=== PATIENT | female | born 1975 | race Caucasian/White ===

== ENCOUNTER 2024-07-30 14:56 | Emergency (ER) | payer OTHER, SELFPAY ==
[2024-07-30] VITALS (7 sets, daily range): BP systolic 96–116; BP diastolic 47–86; PULSE 65–83; BMI 31.8
[2024-07-30 15:29] LABS: % Basophils 0.7 % (0-2); % Eosinophils 2.6 % (0-6); % Immature Granulocytes 0.4 % (0-0.5); % Lymphocytes 23.9 % (20.5-51.1); % Monocytes 7.6 % (1.7-9.3); % Neutrophils 64.8 % (42.2-75.2); Absolute Basophils 0.1 10^3/uL (0-0.2); Absolute Eosinophils 0.2 10^3/uL (0-0.7); Absolute Lymphocytes 1.9 10^3/uL (1.2-3.4); Absolute Monocytes 0.6 10^3/uL (0.1-0.6); Absolute Neutrophils 5.3 10^3/uL (1.4-6.5); Hematocrit 40.1 % (37.0-47.0); Hemoglobin 13.5 g/dL (12.0-16.0); Mean Corp Hgb Conc. 33.7 g/dL (33.0-37.0); Mean Corpuscular Hgb 28.9 pg (27.0-31.0); Mean Corpuscular Volume 85.9 fL (81.0-99.0); Mean Platelet Volume 14.8 fL (7.4-10.4); Nucleated Red Blood Cells % 0 %; Platelet Count 114 10^3/uL (130-400); Red Blood Cell Count 4.67 10^6/uL (4.20-5.40); Red Cell Dist. Width 13.9 % (11.5-14.5); White Blood Cell Count 8.1 10^3/uL (4.8-10.8)
[2024-07-30 15:36] LABS: HCG, Serum Qualitative Screen Negative
[2024-07-30 15:42] LABS: ALT (SGPT) 13 U/L (0-35); AST (SGOT) 18 U/L (14-36); Albumin 4.5 g/dl (3.5-5.0); Alkaline Phosphatase 61 U/L (38-126); Blood Urea Nitrogen 9 mg/dl (7-17); Calcium 9.5 mg/dl (8.4-10.2); Carbon Dioxide 24 mmol/L (22-30); Chloride 108 mmol/L (98-107); Glucose 113 mg/dl (70-99); Sodium 138 mmol/L (135-145); Total Bilirubin 0.6 mg/dl (0.2-1.3); Total Protein 7.8 g/dl (6.3-8.2); eGFR > 60.00
[2024-07-30] MEDS: NSS 1000 IV (15:48)
--- NOTE | 2024-07-30 15:48 | ED.GENMED ---
History of Present Illness
General
Chief Complaint: Dizziness
Source: patient
Exam Limitations: none
Time Seen by Provider: 07/30/24 15:28
Nursing documentation reviewed up to this point in time: agreed with
History of Present Illness
History of Present Illness:
Patient to ED with complaint of dizziness, n/v, headache, right eye pain x 24 hours. Advised by PCP to come to ED. History of vertigo but this feels different. Brought to ED by father and son for eval.
Past History
Past History
ED Past Medical History: Other (Vertigo)
ED Past Surgical History: Appendectomy and
Social History
Tobacco: Smoker
Alcohol: Occasional
Drug: None
Personal:
Living: with family
Review of Systems
Review of Systems
Allergies reviewed?: Yes
All Other Systems: ROS reviewed and negative except as documented in HPI and ROS
Constitutional: Reports no symptoms
EENT: Reports other (right eye pain)
Respiratory: Reports no symptoms
Cardiac: Reports no symptoms
ABD/GI: Reports vomiting
: Reports no symptoms
Musculoskeletal: Reports no symptoms
Skin: Reports no symptoms
Neurological: Reports dizzy, headache and weakness
Psychiatric: Reports no symptoms
Phy Exam
General Physical Exam
General Presentation: moderate distress
General age: appears stated age
General Skin: warm and dry
General Habitus: normal
General Mental: alert
Eye Exam
Eye Exam: PERRL, EOMI, conjunctiva normal and globe normal
Gastrointestinal Exam
Gastrointestinal Exam: normal bowel sounds, non tender, soft, no organomegaly, non distended and no cva tenderness
Musculoskeletal Exam
Musculoskeletal Exam: full ROM and neuro vasc intact
Skin Exam
Skin Exam: normal color, warm/dry and no rash
Psychiatric Exam
Psychiatric Exam: normal mood/affect
Course
Orders/Labs/Results
Orders:
Orders
07/30/24 14:58
Electrocardiogram (*1) Urgent
Reason for Study: Vertigo / Dizzy
EKG- Treatment ONCE
07/30/24 15:08
Test Result ONCE
07/30/24 15:15
Complete Blood Count/With Diff Urgent
Comprehensive Metabolic Panel Urgent
HCG, Serum Qualitative Screen Urgent
Troponin I Urgent
07/30/24 15:45
CT Head W/o Iv Contrast Urgent
Comment:
Reason For Exam: headache, dizziness, right eye pain
0.9% Sodium Chloride 1000 ml [Nss] 1,000 ml IV BOLUS
Ondansetron Injectable [Zofran] 4 mg IV NOW STA
diazePAM [Valium Injection] 2 mg IV NOW STA
07/30/24 17:37
Acetaminophen [Tylenol] 1,000 mg PO NOW STA
07/30/24 18:21
Orthostatic VS- Treatment ONCE
07/30/24 18:49
Meclizine [Antivert] 25 mg PO NOW STA
Ondansetron Injectable [Zofran] 4 mg IV NOW STA
Abnormal Lab Results
07/30/24
15:15
Plt Count 114 L 10^3/uL
(130-400)
MPV 14.8 H fL
(7.4-10.4)
Chloride 108 H mmol/L
(98-107)
Glucose 113 H mg/dl
(70-99)
07/30/24 15:15
07/30/24 15:15
Vital Signs
Initial and Last Documented VS:
Initial Vital Signs
Temp Pulse Resp BP Pulse Ox
98.3 F 75 20 116/86 97
07/30/24 15:03 07/30/24 15:03 07/30/24 15:03 07/30/24 15:03 07/30/24 15:03
Last Documented Vital Signs
Temp Pulse Resp BP Pulse Ox
98.3 F 61 19 102/66 96
07/30/24 15:03 07/30/24 19:00 07/30/24 19:00 07/30/24 19:00 07/30/24 19:00
*Radiology
Radiology exam reviewed: radiology read reviewed
*Pulse Oximetry
Patient hypoxic: no
*Critical Care Note
Total Time (30-74mins, 75-104mins- exclusive of procedures): Not Applicable
Update Note
Update Note:
Patient to ED wtih complaint of dizziness and right eye pain. History of vertigo. Improved with IV fluid, valium. Head CT neg for acute findings. Will discharge home, given rx for meclizine. She was given instruction on s/s to return to ED and
she is agreeable to plan.
ED Attending Note
-
Portions of this chart may have been created with voice recognition software.� Occasional wrong word or��sound alike� substitutions may have occurred due to the inherent limitations of voice recognition software.
Discharge Plan
Departure
Patient Disposition: Home (Routine Discharge)
Date of Disposition: 07/30/24
Time of Disposition: 18:50
Patient with high blood pressure during this ER visit?: No
Condition: Good
Covid-19: Not Applicable
Discharge Problem:
Dizziness
Instructions: Dizziness
Prescriptions:
New
ondansetron 4 mg tablet,disintegrating
4 mg PO Q8H PRN (Reason: nausea and vomiting) Qty: 12 0RF
meclizine 25 mg tablet
25 mg PO TID PRN (Reason: dizziness) Qty: 15 0RF
No Action
acetaminophen 325 MG tablet
650 mg PO Q4HPRN PRN (Reason: as directed)
ibuprofen [Advil] 200 MG tablet
400 mg PO Q6HPRN PRN (Reason: as directed)
diazepam 5 MG tablet
5 mg PO TIDPRN PRN (Reason: muscle spasm ) Qty: 12 0RF
Referrals:
Natasha Luciano DO [Family Provider] - Follow up in 2-3 days
Activity Restrictions/Additional Instructions:
Return to the emergency department immediately for any changes in/worsening of your symptms
Interventions
Interventions:
*General Assessment Last Done: 07/30/24 15:05
*Neglect/Abuse Screening Last Done: 07/30/24 15:05
*Nursing Disposition Last Done: 07/30/24 19:17
ED- Neurological Assessment Last Done: 07/30/24 16:10
Discharge Date and Time
Discharge Date/Time: 07/30/24 19:17
Print Language: UGANDAN
[2024-07-30] MEDS: ZOFRAN 4 MG IV ×2 (15:49→19:01)
[2024-07-30] MEDS: VALIUM INJECTION 2 MG IV (15:51)
[2024-07-30 15:52] LABS: Troponin I < 0.012 ng/ml
[2024-07-30] MEDS: TYLENOL 1000 MG PO (17:57)
[2024-07-30] MEDS: ANTIVERT 25 MG PO (19:02)
== END 2024-07-30 19:17 | disposition home or self-care (01) ==
LOC: EMR 14:56
PROVIDERS: EMERGENCY PHYSICIAN Emergency Medicine; FAMILY PHYSICIAN Family Medicine
DX: R42 Dizziness and giddiness (principal); R51.9 Headache, unspecified; H57.11 Ocular pain, right eye; F17.200 Nicotine dependence, unspecified, uncomplicated; Z90.49 Acquired absence of other specified parts of digestive tract
CPT/HCPCS: 99284; 96374; 96375; 96376; 70450; 80053; 84484; 84703; 85025; 93005